=== PATIENT | female | born 2000 | race Two or more races ===

== ENCOUNTER 2019-07-04 19:34 | Emergency (ER) | payer OTHER ==
--- NOTE | 2019-07-04 20:11 | ER Document Report ---
ED GI/ - General Chief Complaint: Pelvic Pain Stated Complaint: ABDOMINAL PAIN Time Seen by Provider: 07/04/19 20:10 Mode of Arrival: Ambulatory Information source: Patient Notes: 19-year-old female with no previous medical problems presents to the emergency room complaining of right lower quadrant pain for the past 2 days. Describes it as a cramping sensation. States she has been having painful intercourse for the past week. Denies any fevers. No nausea, no vomiting, denies any vaginal discharge. Denies any change in sexual partners. Denies any history of STDs. Also complains of a sore throat for the past 2 days. But states is eating and drinking normally. No known ill contacts. No recent travel. TRAVEL OUTSIDE OF THE [place] IN LAST 30 DAYS: No - HPI Patient complains to provider of: Pelvic pain - Related Data Allergies/Adverse Reactions: No Known Allergies Allergy (Unverified 07/04/19 19:53) Home Medications: topiramate Past Medical History - General Information source: Patient - Social History Smoking Status: Never Smoker Chew tobacco use (# tins/day): No Frequency of alcohol use: Occasional Drug Abuse: None Lives with: Family Family History: Reviewed & Not Pertinent Patient has suicidal ideation: No Patient has homicidal ideation: No - Medical History Medical History: Negative Review of Systems - Review of Systems Constitutional: No symptoms reported EENT: Throat pain Cardiovascular: No symptoms reported Respiratory: No symptoms reported Gastrointestinal: No symptoms reported Genitourinary: Pain - Right pelvic pain Female Genitourinary: Painful intercourse Musculoskeletal: No symptoms reported Skin: No symptoms reported Hematologic/Lymphatic: No symptoms reported Neurological/Psychological: No symptoms reported -: Yes All other systems reviewed and negative Physical Exam - Vital signs Vitals: Temp Pulse Resp BP Pulse Ox 98.2 F 102 H 18 106/76 100 07/04/19 19:45 07/04/19 19:45 07/04/19 19:45 07/04/19 19:45 07/04/19 19:45 - General General appearance: Appears well, Alert In distress: Mild - HEENT Head: Normocephalic, Atraumatic Tympanic membrane: Normal Sinus: Normal Nasal: Normal Mucous membranes: Normal Pharynx: Normal Neck: Normal. No: Lymphadenopathy, Meningismus, Shotty nodes - Respiratory Respiratory status: No respiratory distress Chest status: Nontender Breath sounds: Normal Chest palpation: Normal - Cardiovascular Rhythm: Regular Heart sounds: Normal auscultation Murmur: No - Abdominal Inspection: Normal Distension: No distension Bowel sounds: Normal Tenderness: Nontender Organomegaly: No organomegaly - Back Back: Normal, Nontender - Neurological Neuro grossly intact: Yes Cognition: Normal Orientation: AAOx4 Hamilton Coma Scale Eye Opening: Spontaneous Juan Coma Scale Verbal: Oriented Juan Coma Scale Motor: Obeys Commands Hamilton Coma Scale Total: 15 Speech: Normal Motor strength normal: LUE, RUE, LLE, RLE Sensory: Normal - Skin Skin Temperature: Warm Skin Moisture: Dry Skin Color: Normal Course - Re-evaluation Re-evalutation: 07/04/19 23:26 Patient is resting comfortably she is afebrile, nontoxic-appearing. She is pain-free on exam. Reviewed test results with patient. Aware she will be notified if her gonorrhea and/or chlamydia tests are positive. She was coun seled that she can take Tylenol and or Motrin as needed for pain. Outpatient follow-up with gynecology as discussed. She was given strict return to emergency room guidelines. Return for any new or worsening symptoms. All questions were answered. Patient verbalized understanding and agrees with plan of care. - Vital Signs Vital signs: Temp Pulse Resp BP Pulse Ox 98.2 F 102 H 18 106/76 100 07/04/19 19:45 07/04/19 19:45 07/04/19 19:45 07/04/19 19:45 07/04/19 19:45 - Laboratory Result Diagrams: 07/04/19 19:51 07/04/19 19:51 Laboratory results interpreted by me: 07/04/19 07/04/19 07/04/19 19:51 19:51 19:51 WBC 12.4 H Absolute Neuts (auto) 8.7 H Total Protein 8.7 H Urine Protein 30 H Urine Ketones 20 H Urine Urobilinogen 2.0 H Leukocyte Esterase Rfl TRACE H Urine Ascorbic Acid 40 H - Diagnostic Test Radiology reviewed: Reports reviewed Discharge - Discharge Clinical Impression: Right ovarian cyst Condition: Good Disposition: HOME, SELF-CARE Instructions: [employer] Doctors, Ovarian Cyst ([facility]) Referrals: BECCA HALL MD [ACTIVE STAFF] - Follow up in 1 month (call for an appointment)
[2019-07-04 20:13] LABS: ABSOLUTE EOSINOPHILS # (AUTO) 0.1 10^3/uL (0.0-0.6); ABSOLUTE LYMPHOCYTES (AUTO) 2.9 10^3/uL (0.5-4.7); ABSOLUTE MONOCYTES (AUTO) 0.7 10^3/uL (0.1-1.4); ABSOLUTE NEUT (AUTO) 8.7 10^3/uL (1.7-8.2); BASOPHILS % (AUTO) 0.2 % (0-2); EOSINOPHILS % (AUTO) 1.2 % (0-6); HEMATOCRIT 43.2 % (36.0-47.0); HEMOGLOBIN 15.1 g/dL (12.0-15.5); LYMPHOCYTES % (AUTO) 23.2 % (13-45); MEAN CORPUSCULAR HEMOGLOBIN 33.1 pg (27.0-33.4); MEAN CORPUSCULAR HGB CONC 34.8 g/dL (32.0-36.0); MEAN CORPUSCULAR VOLUME 95 fl (80-97); MONOCYTES % (AUTO) 5.4 % (3-13); PLATELET COUNT 244 10^3/uL (150-450); RED BLOOD COUNT 4.55 10^6/uL (3.72-5.28); RED CELL DISTRIBUTION WIDTH 12.3 % (11.5-14.0); TOTAL CELLS COUNTED % (AUTO) 100 %; WHITE BLOOD COUNT 12.4 10^3/uL (4.0-10.5)
[2019-07-04 20:21] LABS: APPEARANCE,URINE SLIGHTLY-CLOUDY; BILIRUBIN,URINE NEGATIVE (NEGATIVE); COLOR,URINE YELLOW; GLUCOSE, URINE NEGATIVE (NEGATIVE); KETONES,URINE 20 mg/dL (NEGATIVE); PROTEIN,URINE 30 mg/dL (NEGATIVE); URINE SPECIFIC GRAVITY 1.027
[2019-07-04 20:30] LABS: ALKALINE PHOSPHATASE 82 U/L (38-126); ANION GAP 10 (5-19); ASPARTATE AMINO TRANSFERASE 22 U/L (14-36); BILIRUBIN,TOTAL 0.9 mg/dL (0.2-1.3); BLOOD UREA NITROGEN 16 mg/dL (7-20); CALCIUM 9.7 mg/dL (8.4-10.2); CARBON DIOXIDE 25 mmol/L (22-30); CHLORIDE 103 mmol/L (98-107); GLUCOSE 81 mg/dL (75-110); POTASSIUM 4.1 mmol/L (3.6-5.0); TOTAL PROTEIN 8.7 g/dL (6.3-8.2)
[2019-07-04 21:16] LABS: T.VAGINALIS (WET MOUNT) NO TRICHOMONAS SEEN
[2019-07-04 21:17] LABS: WBCS (WET MOUNT) RARE WBCS SEEN; YEAST (WET MOUNT) NO YEAST SEEN
--- NOTE | 2019-07-04 22:26 | RADIOLOGY REPORT (SQ) ---
EXAM DESCRIPTION: US PELVIS TRANSVAGINAL WITH DOPPLER CLINICAL HISTORY: 19 years Female pelvic pain COMPARISON: None TECHNIQUE: Transvaginal pelvic ultrasound was performed including color duplex analysis. FINDINGS: The uterus measures 6.7 x 3.5 x 4.1 cm. The endometrial stripe measures 0.4 cm in thickness. The cervix measures approximately 2.67 m in length. The right ovary measures 3.0 x 3.6 x 2.6 cm and contains a simple 2.2 cm exophytic cyst. There is normal color and spectral Doppler flow. The left ovary measures 2.5 x 3.3 x 1.6 cm with normal color and spectral Doppler flow. No adnexal masses. Trace free fluid in the cul-de-sac. IMPRESSION: Simple 2.2 cm exophytic right ovarian cyst. Follow-up is not needed. Trace free fluid in the cul-de-sac may be due to leaking of the cyst. The remainder of the exam is unremarkable sonographically.
[2019-07-04 22:52] LABS: CHLAM PCR NOT DETECTED (NOT DETECT)
[2019-07-04 23:44] VITALS: BP 105/75
== END 2019-07-04 23:45 | disposition home or self-care (01) ==
LOC: ER 19:34
DX: N83.201 Unspecified ovarian cyst, right side (principal); R10.2 Pelvic and perineal pain; R10.31 Right lower quadrant pain; J02.9 Acute pharyngitis, unspecified
CPT/HCPCS: 36415; 76830; 80053; 81001; 81025; 85025; 87070; 87086; 87210; 87491; 87591; 87880; 93976; 99284